=== PATIENT | male | born 1960 | race Caucasian/White ===

== ENCOUNTER → 2017-09-27 09:16 | Outpatient (CLI) | payer MEDICAID, SELFPAY | PROVIDERS: Family Provider Family Medicine; PCP Family Medicine; Visit Provider Family Medicine | DX: R07.89 Other chest pain (principal) | CPT/HCPCS: 93017 ==

== ENCOUNTER → 2018-05-22 10:20 | Outpatient (CLI) | payer MEDICAID, SELFPAY ==
[2018-05-22 12:10] LABS: Basophils # 0.1 K/mm3 (0-0.2); Basophils % 0.7 % (0.1-2.0); Eosinophils # 0.3 K/mm3 (0.0-0.4); Eosinophils % 3.7 % (0.1-12.0); Hematocrit 46.5 % (42.0-52.0); Hemoglobin 15.8 g/dL (14.1-18.0); Lymphocytes # 2.2 K/mm3 (0.7-4.5); Lymphocytes % 29.8 % (10-50); Mean Corpuscular Hemoglobin 29.3 pg (27.0-31.2); Mean Corpuscular Volume 86.2 fl (80-94); Mean Platelet Volume 7.3 fl (7.4-10.4); Monocytes # 0.4 K/mm3 (0.1-1.0); Monocytes % 5.8 % (1.7-9.3); Neutrophils # 4.5 K/mm3 (1.8-7.8); Platelet Count 276 K/mm3 (142-424); Red Cell Distribution Width 13.2 % (11.5-17.5); White Blood Count 7.5 K/mm3 (4.8-10.8)
[2018-05-22 12:55] LABS: Anion Gap 15.1 mEq/L (5-15); Blood Urea Nitrogen 15 mg/dL (7-18); Calcium 9.6 mg/dL (8.5-10.1); Carbon Dioxide 28 mmol/L (21.0-32.0); Chloride 104 mmol/L (98-107); Creatinine,Serum 1.01 mg/dL (0.70-1.30); Estimated Glomerular Filt Rate 76 ml/min (>60); GFR (African American) 92 ML/MIN (>60); Glucose 108 mg/dL (74-106); Potassium 4.1 mmoL/L (3.5-5.1); Sodium 143 mmol/L (136-145)
== END ==
PROVIDERS: Visit Provider Surgery
DX: K46.9 Unspecified abdominal hernia without obstruction or gangrene (principal)
CPT/HCPCS: 36415; 80048; 85025

== ENCOUNTER → 2018-06-19 09:36 | Outpatient (CLI) | payer MEDICAID, SELFPAY ==
[2018-06-19 11:19] LABS: Alanine Aminotransferase 43 U/L (12-78); Albumin Level 4.2 gm/dL (3.4-5.0); Albumin/Globulin Ratio 1.1 (1.1-1.8); Alkaline Phosphatase 81 U/L (46-116); Anion Gap 13.7 mEq/L (5-15); Aspartate Amino Transferase 20 U/L (15-37); Bilirubin,Total 0.8 mg/dL (0.2-1.0); Blood Urea Nitrogen 19 mg/dL (7-18); Calcium 9.5 mg/dL (8.5-10.1); Carbon Dioxide 32 mmol/L (21.0-32.0); Chloride 100 mmol/L (98-107); Chol/HDL Ratio 2.7 (1-3.5); Cholesterol 138 mg/dL (140-200); Creatinine,Serum 1.04 mg/dL (0.70-1.30); Estimated Glomerular Filt Rate 73 ml/min (>60); GFR (African American) 89 ML/MIN (>60); Globulin 3.9 gm/dl (1.3-3.2); Glucose 96 mg/dL (74-106); HDL Cholesterol 52 mg/dL (27-67); LDL Cholesterol 61 mg/dL (0-130); Potassium 3.7 mmoL/L (3.5-5.1); Prostate Specific Ag Screen 2.2 ng/mL (0.0-4.0); Sodium 142 mmol/L (136-145); Total Protein,Serum 8.1 gm/dL (6.4-8.2); Triglycerides 123 mg/dL (30-200); VLDL Cholesterol 25 mg/dL (0-40)
== END ==
PROVIDERS: PCP Family Medicine; Visit Provider Physician Assistant
DX: Z12.5 Encounter for screening for malignant neoplasm of prostate (principal); E78.00 Pure hypercholesterolemia, unspecified; I10 Essential (primary) hypertension
CPT/HCPCS: 36415; 80053; 80061; G0103

== ENCOUNTER → 2018-06-22 11:10 | Outpatient (CLI) | payer MEDICAID, SELFPAY ==
--- NOTE | 2018-06-22 11:16 | XR_ITS ---
XR chest 2V HISTORY: ITS.REASON: BRONCHITIS ORDERING PHYSICIAN: CAREN Bear PATIENT AGE: 58 years COMPARISON: 11/24/2015 FINDINGS: The cardiomediastinal silhouette and pulmonary vascularity are within normal limits. The lungs are clear without infiltrates, suspicious nodules, or pleural effusions. Small opacities are present in the right middle lobe related to a cluster of calcified granulomas unchanged No acute bony abnormalities. IMPRESSION: No change with no acute finding
== END ==
PROVIDERS: PCP Physician Assistant; Visit Provider Physician Assistant
DX: J40 Bronchitis, not specified as acute or chronic (principal)
CPT/HCPCS: 71046

== ENCOUNTER → 2019-01-26 10:52 | Outpatient (CLI) | payer MEDICAID, SELFPAY ==
--- NOTE | 2019-01-26 10:55 | CA_ITS ---
APPROVED REPORT Left Lower Extremity Venous Study for SVT/DVT. Finishing Frame Runner: CT Indications Lower Extremity Pain: Left Varicose Veins Vein Imaging CFV (L): compressive, spontaneous, phasic, augmentation SFJ (L): compressive, spontaneous, phasic, augmentation FEM (L): compressive, spontaneous, phasic, augmentation POP (L): compressive, spontaneous, phasic, augmentation DFV (L): compressive, spontaneous, phasic, augmentation PTV (L): compressive, spontaneous, phasic, augmentation GSV (L): Partially Compressible SSV (L): compressive, spontaneous, phasic, augmentation Peroneals (L):compressive, spontaneous, phasic, augmentation GAS (L): compressive, spontaneous, phasic, augmentation Findings Superficial thrombophlebitis is visualized in the GSV_vein of the LEFT_lower extremity . SVT in left GSV. Dr Brumfield notified at 1145 01/26/19. Conclusion Superficial thrombophlebitis is visualized in the GSV_vein of the LEFT_lower extremity . Electronically signed by : Maciel Garza MD 01/26/2019 14:30:33
== END ==
PROVIDERS: PCP Physician Assistant; Visit Provider Physician Assistant
DX: I80.9 Phlebitis and thrombophlebitis of unspecified site (principal); M79.605 Pain in left leg
CPT/HCPCS: 93971

== ENCOUNTER → 2019-10-22 09:13 | Outpatient (CLI) | payer OTHER, SELFPAY ==
--- NOTE | 2019-10-22 09:16 | CA_ITS ---
APPROVED REPORT Bilateral Lower Extremity Venous Study for DVT. Area Director Of Home Health Sales: SAMIR Indications FOLLOW UP SVT GSV 01/18 Vein Imaging CFV (L): compressive, spontaneous, phasic, augmentation SFJ (L): compressive, spontaneous, phasic, augmentation FEM (L): compressive, spontaneous, phasic, augmentation POP (L): compressive, spontaneous, phasic, augmentation DFV (L): compressive, spontaneous, phasic, augmentation PTV (L): Compressible GSV (L): Compressible Peroneals (L):Compressible GAS (L): Compressible Findings No evidence of DVT or superficial thrombophlebitis in the veins scanned of the left lower extremity. Conclusion No evidence of DVT or superficial thrombophlebitis in the veins scanned of the left lower extremity. Electronically signed by : Jaiden Erazo, 10/25/2019 09:20:11
== END ==
PROVIDERS: PCP Family Medicine; Visit Provider Physician Assistant
DX: I82.812 Embolism and thrombosis of superficial veins of left lower extremity (principal)
CPT/HCPCS: 93971

== ENCOUNTER → 2019-10-31 12:28 | Outpatient (CLI) | payer OTHER, SELFPAY ==
--- NOTE | 2019-10-31 12:38 | XR_ITS ---
PROCEDURE: XR HAND RT MIN 3V CLINICAL INDICATION: right hand pain/ ganglion cyst COMPARISON: [facility] HAND-RT 3 VIEWS from 03/18/2017 FINDINGS: No fracture or dislocation. No lytic or blastic change. There is normal mineralization. The joint spaces are well-preserved. No significant degenerative/arthritic changes. No erosive changes evident. Other findings:None. IMPRESSION: No acute findings. Dictated by: Maciel Garza MD 10/31/2019 13:29 Electronically signed by Maciel Garza MD in [place] 10/31/2019 13:29
== END ==
PROVIDERS: PCP Family Medicine; Visit Provider Orthopaedic Surgery
DX: M79.641 Pain in right hand (principal)
CPT/HCPCS: 73130

== ENCOUNTER → 2020-12-30 12:35 | Outpatient (CLI) | payer OTHER, SELFPAY ==
[2020-12-30 13:04] LABS: Basophils # 0.1 K/mm3 (0-0.2); Basophils % 1.3 % (0.1-2.0); Eosinophils % 0.1 % (0.1-12.0); Hematocrit 41.3 % (42.0-52.0); Hemoglobin 14.4 g/dL (14.1-18.0); Lymphocytes # 1.4 K/mm3 (0.7-4.5); Lymphocytes % 20.9 % (10-50); Mean Corpuscular HGB Conc 34.9 g/dL (31.8-35.4); Mean Corpuscular Hemoglobin 29.9 pg (27.0-31.2); Mean Corpuscular Volume 85.9 fl (80-94); Mean Platelet Volume 8.8 fl (7.4-10.4); Monocytes # 0.4 K/mm3 (0.1-1.0); Monocytes % 5.2 % (1.7-9.3); Neutrophils % 72.4 % (37.0-80.0); Platelet Count 156 K/mm3 (142-424); Red Blood Count 4.81 M/mm3 (4.60-6.20); Red Cell Distribution Width 13.8 % (11.5-17.5); White Blood Count 6.9 K/mm3 (4.8-10.8)
== END ==
PROVIDERS: PCP Family Medicine; Visit Provider Family Medicine
DX: Z20.822 Contact with and (suspected) exposure to COVID-19 (principal); U07.1 COVID-19
CPT/HCPCS: 36415; 85025; U0003

== ENCOUNTER 2021-01-02 20:52 | Emergency (ER) | payer OTHER, SELFPAY ==
[2021-01-02 21:06] VITALS: BP 119/78; PULSE 83; RESP 18; TEMP 38.6; O2SAT 94; BMI 33.2
--- NOTE | 2021-01-02 21:21 | CT_ITS ---
PROCEDURE INFORMATION: Exam: CT Abdomen And Pelvis With Contrast Exam date and time: 01/02/2021 9:21 PM Age: 60 years old Clinical indication: Abdominal pain; Generalized; Prior surgery; Surgery date: 6+ months; Patient HX: Rlq abd pain, covid positive; Additional info: Rlq pain TECHNIQUE: Imaging protocol: Computed tomography of the abdomen and pelvis with contrast. Radiation optimization: All CT scans at this facility use at least one of these dose optimization techniques: automated exposure control; mA and/or kV adjustment per patient size (includes targeted exams where dose is matched to clinical indication); or iterative reconstruction. Contrast material: ISOVUE; Contrast volume: 70 ml; Contrast route: IV; COMPARISON: [facility]AJW/ORT MRI-LOW EXT ANY JOINT W/O-RT 11/07/2015 7:56 AM FINDINGS: Liver: There is diffuse hypoattenuation of the liver compatible with mild hepatic steatosis. Gallbladder and bile ducts: Normal. No calcified stones. No ductal dilation. Pancreas: Normal. No ductal dilation. Spleen: Normal. No splenomegaly. Adrenal glands: Normal. No mass. Kidneys and ureters: Bosniak 1 cyst measuring 5.1 cm with internal density of 2 Hounsfield units. No follow-up recommended. Stomach and bowel: Unremarkable. No obstruction. No mucosal thickening. Appendix: No evidence of appendicitis. Intraperitoneal space: Unremarkable. No free air. No significant fluid collection. Vasculature: Unremarkable. No abdominal aortic aneurysm. Lymph nodes: Unremarkable. No enlarged lymph nodes. Urinary bladder: Unremarkable as visualized. Reproductive: Moderate enlargement of the prostate indenting the posterior wall of the bladder. Bones/joints: Mild loss of intervertebral disc space with degenerative changes at L5-S1, and lower thoracic spine. Soft tissues: Normal. Other findings: Patchy subpleural predominant ground-glass opacities are concerning for atypical infection, possibly mild changes of influenza like illness. IMPRESSION: Patchy subpleural predominant ground-glass opacities are concerning for atypical infection, possibly mild changes of influenza like illness. No CT findings explain patient's symptoms.
[2021-01-02 22:16] LABS: Basophils % 0.4 % (0.1-2.0); Eosinophils % 0.1 % (0.1-12.0); Hematocrit 41.5 % (42.0-52.0); Hemoglobin 14.5 g/dL (14.1-18.0); Lymphocytes # 1.4 K/mm3 (0.7-4.5); Lymphocytes % 15.5 % (10-50); Mean Corpuscular HGB Conc 34.9 g/dL (31.8-35.4); Mean Corpuscular Hemoglobin 30.2 pg (27.0-31.2); Mean Corpuscular Volume 86.6 fl (80-94); Mean Platelet Volume 10.2 fl (7.4-10.4); Monocytes # 0.4 K/mm3 (0.1-1.0); Monocytes % 4.6 % (1.7-9.3); Neutrophils # 7.1 K/mm3 (1.8-7.8); Neutrophils % 79.4 % (37.0-80.0); Platelet Count 154 K/mm3 (142-424); Red Cell Distribution Width 13.8 % (11.5-17.5); White Blood Count 8.9 K/mm3 (4.8-10.8)
[2021-01-02 22:22] LABS: Alanine Aminotransferase 73 U/L (12-78); Albumin Level 3.7 g/dl (3.5-5.0); Albumin/Globulin Ratio 1.2 (1.1-1.8); Alkaline Phosphatase 42 U/L (38-126); Amylase 86 U/L (30-110); Anion Gap 12.3 mEq/L (5-15); Aspartate Amino Transferase 157 U/L (17-59); Bilirubin,Total 1.2 mg/dl (0.2-1.3); Blood Urea Nitrogen 25 mg/dl (9-20); Calcium 8.4 mg/dl (8.4-10.2); Carbon Dioxide 28 mmol/L (22.0-30.0); Chloride 99 mmol/L (98-107); Creatinine Clearance Estimated 94 mL/min (50-200); Estimated Glomerular Filt Rate 62 ml/min (>60); GFR (African American) 75 ML/MIN (>60); Globulin 3.2 g/dL (1.3-3.2); Glucose 142 mg/dl (74-100); Lipase 398 U/L (23-300); Potassium 4.3 mmoL/L (3.5-5.1); Sodium 135 mmol/L (136-145); Total Protein,Serum 6.9 g/dl (6.3-8.2)
[2021-01-02 22:27] LABS: C-Reactive Protein 18.8 mg/L (0-4)
[2021-01-02 22:40] LABS: Erythrocyte Sedimentation Rate 13 mm/hr (0-20)
[2021-01-02 22:41] LABS: Procalcitonin 0.092 ng/mL (0.0-2.0)
--- NOTE | 2021-01-02 23:38 | HMH.EDNVD ---
ED Disposition Clinical Impression: COVID-19 Disposition: Home, Self-Care Condition on Discharge: Good Instructions: DI for COVID-19 (Suspected or Confirmed ) Additional Instructions: fluids and advil/tyenol and see pcp for follow up Referrals: Radha Gastelum MD [Primary Care Provider] - - Critical Care Critical Care Time: No Attestation: On 01/02/21, the high probability of a clinically significant, sudden or life threatening deterioration of the following system(s) required my full and direct attention, intervention and personal management. The time I documented below is in addition to time spent performing reported procedures but includes the following listed in this critical care notation. Medical Decision Making - Medical Records Medical records reviewed: Yes: I reviewed the patient's medical records. - Fred Inquiry Pt receiving controlled substance: No Vital Signs: 01/02/21 21:06 Temperature 101.4 F H Temperature Source Oral Pulse Rate [Right] 83 Respiratory Rate 18 Blood Pressure [Right Arm] 119/78 Blood Pressure Mean [Right Arm] 91 Blood Pressure Source [Right Arm] Automatic Cuff Blood Pressure Position [Right Arm] Sitting 02 Sat by Pulse Oximetry 94 L Oxygen Delivery Method Room Air - Lab Data Lab results reviewed: Yes: I reviewed the patient's lab results. Lab Results 01/02/21 21:45: WBC 8.9, RBC 4.80, Hgb 14.5, Hct 41.5 L, MCV 86.6, MCH 30.2, MCHC 34.9, RDW 13.8, Plt Count 154, MPV 10.2, Neut % (Auto) 79.4, Lymph % (Auto) 15.5, [place] % (Auto) 4.6, Eos % (Auto) 0.1, Baso % (Auto) 0.4, Neut # (Auto) 7.1, Lymph # (Auto) 1.4, [place] # (Auto) 0.4, Eos # (Auto) 0.0, Baso # (Auto) 0.0, ESR 13 01/02/21 21:45: Sodium 135 L, Potassium 4.3, Chloride 99, Carbon Dioxide 28, Anion Gap 12.3, BUN 25 H, Creatinine 1.20, Estimated Creat Clear 94, Estimated GFR 62, Est GFR ( Amer) 75, Glucose 142 H, Calcium 8.4, Total Bilirubin 1.2, AST 157 H, ALT 73, Alkaline Phosphatase 42, C-Reactive Protein 18.8 H, Total Protein 6.9, Albumin 3.7, Globulin 3.2, Albumin/Globulin Ratio 1.2, Amylase 86, Lipase 398 H, Procalcitonin 0.092 01/02/21 23:35: Urine Color Yellow, Urine Appearance Clear, Urine pH 6.0, Ur Specific [place] <= 1.005, Urine Protein Trace, Urine Glucose (UA) Negative, Urine Ketones Negative, Urine Blood 1+, Urine Nitrate Negative, Urine Bilirubin Negative, Urine Urobilinogen 1.0, Ur Leukocyte Esterase Negative, Urine RBC 3-5, Urine WBC 3-5, Ur Squamous Epith Cells Occasional, Urine Bacteria None Result diagrams: 01/02/21 21:45 01/02/21 21:45 Orders (Tests/Meds): ED MEDICATIONS Generic Name Dose Route Start Last Admin Trade Name Kaylan PRN Reason Stop Dose Admin Sodium Chloride 8 ml 01/02/21 21:21 Sodium Chloride 0.9% 10ml Vial IV 02/01/21 21:20 NEEDED PRN dilute pepcid Discontinued Medications Generic Name Dose Route Start Last Admin Trade Name Freq PRN Reason Stop Dose Admin Dexamethasone Sodium Phosphate 10 mg 01/02/21 21:21 01/02/21 21:55 Dexamethasone 4mg/Ml 1ml Vial IV 01/02/21 21:22 10 mg ONCE ONE Administration Famotidine 20 mg 01/02/21 21:21 01/02/21 21:54 Famotidine 20mg/2ml Vial IV 01/02/21 21:22 20 mg ONCE ONE Administration Sodium Chloride 1,000 mls @ 999 mls/hr 01/02/21 21:30 01/02/21 21:55 Sod Chlor 0.9% 1000ml Bag IV 01/02/21 22:30 999 mls/hr .Q1H1M ANA LAURA Administration Iopamidol 70 ml 01/02/21 23:32 01/02/21 23:33 Iopamidol-370 (76%);100ml Bottle IV 01/02/21 23:33 70 ml ONCE ONE Administration Ketorolac Tromethamine 30 mg 01/02/21 21:21 01/02/21 21:54 Ketorolac 30mg/Ml Vial IV 01/02/21 21:22 30 mg ONCE ONE Administration Metoclopramide HCl 10 mg 01/02/21 21:21 01/02/21 21:54 Metoclopramide Hcl 10mg/2ml Vial IVP 01/02/21 21:22 10 mg ONCE ONE Administration Sodium Chloride 10 ml 01/02/21 23:32 01/02/21 23:33 Sodium Chloride 0.9% 10ml Syr (Rad Only) IV 01/02/21 23:33 10 ml
[2021-01-02 23:39] LABS: Microscopic, Urine URINE MICROSCOPIC (MICROSCOPIC)
[2021-01-02 23:42] LABS: Appearance,Urine CLEAR (Clear); Bilirubin,Urine Negative (Negative); Blood, Urine 1+ (Negative); Color,Urine YELLOW (Yellow); Glucose,Urine (UA) Negative (Negative); Ketones,Urine Negative (Negative); Leukocyte Esterase,Urine Negative (Negative); Nitrate,Urine Negative (Negative); Protein,Urine TRACE (Negative); Specific Gravity, Urine <= 1.005 (1.005-1.030)
--- NOTE | 2021-01-02 23:44 | XR_ITS ---
PROCEDURE INFORMATION: Exam: XR Chest Exam date and time: 01/02/2021 11:44 PM Age: 60 years old Clinical indication: Cough and dyspnea and fever; Additional info: Covid 19 TECHNIQUE: Imaging protocol: XR of the chest. Views: 2 views. COMPARISON: DX CXR2V XR chest 2V 06/22/2018 11:19 AM FINDINGS: Lungs: Multifocal peripheral parenchymal opacities without large consolidation or pleural effusion. Pleural spaces: See Lungs finding. Heart/Mediastinum: Unremarkable. No cardiomegaly. Bones/joints: Unremarkable. IMPRESSION: Multifocal peripheral parenchymal opacities without large consolidation or pleural effusion.
[2021-01-02 23:52] LABS: Squamous Epithelial Cell,Urine Occasional #/hpf (0-5)
--- NOTE | 2021-01-03 00:05 | PC.NURSE ---
updated daughter on pt's condition. OK'ed per pt.
[2021-01-03 00:43] VITALS: BP 140/87; PULSE 81; RESP 18; TEMP 37.2; O2SAT 94
== END 2021-01-03 00:45 | disposition home or self-care (01) ==
PROVIDERS: Emergency Provider Emergency Medicine; PCP Family Medicine
DX: U07.1 COVID-19 (principal); I10 Essential (primary) hypertension; E78.5 Hyperlipidemia, unspecified
CPT/HCPCS: 71046; 74177; 80053; 81001; 82150; 83690; 84145; 85025; 85651; 86140; 96365; 96375; 99283; Q9967

== ENCOUNTER 2021-01-06 11:41 | Emergency (ER) | payer OTHER, SELFPAY ==
[2021-01-06 11:42] VITALS: BP 143/90; PULSE 96; RESP 21; TEMP 37.1; O2SAT 93; BMI 33.0
--- NOTE | 2021-01-06 11:54 | HMH.EDSOB ---
ED Disposition Clinical Impression: COVID-19 Community acquired pneumonia Qualifiers: Laterality: unspecified laterality Qualified Code(s): J18.9 - Pneumonia, unspecified organism Disposition: Home, Self-Care Condition on Discharge: Fair Instructions: Pneumonia-Adult Additional Instructions: Please return to the emergency department if you feel worse in any way. All medications as prescribed. Follow-up with your primary care physician in about 3 to 4 days if you do not feel better. Prescriptions: levoFLOXacin [Levaquin 500mg tab] 500 mg PO DAILY #7 tab Transmission Status: Received by [id number] Referrals: Radha Gastelum MD [Primary Care Provider] - 3 days - Critical Care Critical Care Time: No Attestation: On 01/06/21, the high probability of a clinically significant, sudden or life threatening deterioration of the following system(s) required my full and direct attention, intervention and personal management. The time I documented below is in addition to time spent performing reported procedures but includes the following listed in this critical care notation. Medical Decision Making - Medical Records Medical records reviewed: Yes: I reviewed the patient's medical records. - Fred Inquiry Pt receiving controlled substance: No Vital Signs: 01/06/21 11:42 01/06/21 15:19 Temperature 98.7 F 98.2 F Temperature Source Oral Pulse Rate 99 H Pulse Rate [Right Radial] 96 H Respiratory Rate 21 21 Blood Pressure 135/92 H Blood Pressure [Right Arm] 143/90 H Blood Pressure Mean [Right Arm] 107 Blood Pressure Source [Right Arm] Automatic Cuff Blood Pressure Position [Right Arm] Sitting 02 Sat by Pulse Oximetry 93 L Oxygen Delivery Method Room Air Room Air - Lab Data Lab results reviewed: Yes: I reviewed the patient's lab results. Lab Results 01/06/21 13:30: WBC 11.5 H, RBC 4.98, Hgb 14.7, Hct 43.2, MCV 86.8, MCH 29.6, MCHC 34.1, RDW 13.7, Plt Count 209 D, MPV 10.6 H, Neut % (Auto) 87.4 H, Lymph % (Auto) 5.8 L, [place] % (Auto) 5.3, Eos % (Auto) 0.9, Baso % (Auto) 0.5, Neut # (Auto) 10.1 H, Lymph # (Auto) 0.7, [place] # (Auto) 0.6, Eos # (Auto) 0.1, Baso # (Auto) 0.1, Total Counted 100, Neutrophils % (Manual) 86 H, Lymphocytes % (Manual) 4 L, Monocytes % (Manual) 10 H, Platelet Estimate Normal, Hypochromasia 2+, Anisocytosis 1+, Macrocytosis 2+ 01/06/21 13:30: Sodium 141, Potassium 3.1 L, Chloride 106, Carbon Dioxide 25, Anion Gap 13.1, BUN 24 H, Creatinine 0.80, Estimated Creat Clear 141, Estimated GFR 99, Est GFR ( Amer) 119, Glucose 173 H, Calcium 9.5, Total Bilirubin 1.5 H, AST 102 H, ALT 103 H, Alkaline Phosphatase 82, Troponin I 0.02, NT-Pro-B Natriuret Pep 347 H, Total Protein 7.8, Albumin 4.1, Globulin 3.7 H, Albumin/Globulin Ratio 1.1 01/06/21 13:30: Lactate 1.3 Result diagrams: 01/06/21 13:30 01/06/21 13:30 Orders (Tests/Meds): ED MEDICATIONS Discontinued Medications Generic Name Dose Route Start Last Admin Trade Name Freq PRN Reason Stop Dose Admin Levofloxacin 500 mg 01/06/21 14:52 01/06/21 15:16 Levofloxacin 500mg Tab PO 01/06/21 14:53 500 mg ONCE ONE Administration - Radiology Data #1 Image(s): Chest Image Reviewed: Yes I have reviewed radiologist's interpretation Preliminary Findings: Abnormal (Worsening infiltrates consistent with pneumonia.) Medical Decision Narrative: The patient has a known diagnosis COVID-19. He presents to the emergency department for worsening symptoms. His oxygen saturations on room air are still in the low to mid 90s. The patient has a mildly elevated white blood cell count. He is not tachycardic. His chest x-ray shows worsening pneumonia. I feel that the patient can be discharged in fair condition with a prescription for antibiotics to cover for possible superimposed bacterial pneumonia. Resp/SOB HPI - General Chief Complaint: Shortness of Breath/Dyspnea Stated Complaint: covid positive, worse
--- NOTE | 2021-01-06 12:11 | XR_ITS ---
PROCEDURE: XR CHEST PORTABLE CLINICAL HISTORY: Dyspnea, COVID+ COMPARISON: CR CXR CHEST(2 VIEWS-NOT PORTABLE) from 11/24/2015 DX CXR2V XR chest 2V from 06/22/2018 CR XR CHEST 2V from 01/03/2021 FINDINGS: The cardiomediastinal silhouette and pulmonary vascularity are within normal limits. Peripheral consolidation involves both upper and lower lobes on both sides consistent with worsening pneumonia. No effusions. No evidence of pneumothorax. The consolidation is slightly worse on the left compared to the right. No acute bony abnormalities. IMPRESSION: Slight worsening bilateral pneumonia Dictated by: Maciel Garza MD 01/06/2021 12:52 Maciel Garza MD in [place] 01/06/2021 12:52
[2021-01-06 13:42] LABS: Basophils # 0.1 K/mm3 (0-0.2); Basophils % 0.5 % (0.1-2.0); Eosinophils # 0.1 K/mm3 (0.0-0.4); Eosinophils % 0.9 % (0.1-12.0); Hematocrit 43.2 % (42.0-52.0); Hemoglobin 14.7 g/dL (14.1-18.0); Lymphocytes # 0.7 K/mm3 (0.7-4.5); Lymphocytes % 5.8 % (10-50); Mean Corpuscular HGB Conc 34.1 g/dL (31.8-35.4); Mean Corpuscular Hemoglobin 29.6 pg (27.0-31.2); Mean Corpuscular Volume 86.8 fl (80-94); Mean Platelet Volume 10.6 fl (7.4-10.4); Monocytes # 0.6 K/mm3 (0.1-1.0); Monocytes % 5.3 % (1.7-9.3); Neutrophils # 10.1 K/mm3 (1.8-7.8); Neutrophils % 87.4 % (37.0-80.0); Platelet Count 209 K/mm3 (142-424); Red Blood Count 4.98 M/mm3 (4.60-6.20); Red Cell Distribution Width 13.7 % (11.5-17.5); White Blood Count 11.5 K/mm3 (4.8-10.8)
[2021-01-06 13:45] LABS: MANUAL DIFFERENTIAL MANUAL DIFFERENTIAL (MANUAL DIFF)
[2021-01-06 13:52] LABS: Chloride 106 mmol/L (98-107); Potassium 3.1 mmoL/L (3.5-5.1); Sodium 141 mmol/L (136-145)
[2021-01-06 13:54] LABS: Alanine Aminotransferase 103 U/L (12-78); Aspartate Amino Transferase 102 U/L (17-59); Blood Urea Nitrogen 24 mg/dl (9-20); Creatinine Clearance Estimated 141 mL/min (50-200); Estimated Glomerular Filt Rate 99 ml/min (>60); GFR (African American) 119 ML/MIN (>60); Lactic Acid 1.3 mmol/L (0.7-2.1)
[2021-01-06 13:55] LABS: Albumin Level 4.1 g/dl (3.5-5.0); Albumin/Globulin Ratio 1.1 (1.1-1.8); Alkaline Phosphatase 82 U/L (38-126); Anion Gap 13.1 mEq/L (5-15); Bilirubin,Total 1.5 mg/dl (0.2-1.3); Calcium 9.5 mg/dl (8.4-10.2); Carbon Dioxide 25 mmol/L (22.0-30.0); Globulin 3.7 g/dL (1.3-3.2); Glucose 173 mg/dl (74-100); Total Protein,Serum 7.8 g/dl (6.3-8.2)
[2021-01-06 14:04] LABS: Lymphocytes % 4 % (10-50); Monocytes % 10 % (2-9); NT Pro Brain Natriuretic Pep. 347 pg/mL (0-125); Neutrophils % 86 % (42-76); Total Cells Counted 100
[2021-01-06 14:05] LABS: Hypochromasia 2+; Macrocytosis 2+; Platelet Estimate Normal
[2021-01-06 14:06] LABS: Anisocytosis 1+
[2021-01-06 14:08] LABS: Troponin I 0.02 ng/ml (0.00-0.034)
[2021-01-06 15:19] VITALS: BP 135/92; PULSE 99; RESP 21; TEMP 36.8; O2SAT 97
== END 2021-01-06 15:24 | disposition home or self-care (01) ==
PROVIDERS: Emergency Provider Emergency Medicine; PCP Family Medicine
DX: J18.9 Pneumonia, unspecified organism (principal); U07.1 COVID-19; E78.5 Hyperlipidemia, unspecified; I10 Essential (primary) hypertension; Z87.891 Personal history of nicotine dependence; Z79.899 Other long term (current) drug therapy
CPT/HCPCS: 71045; 80053; 83605; 83880; 84484; 85007; 85025; 99283

== ENCOUNTER → 2021-02-05 16:19 | Outpatient (CLI) | payer OTHER, SELFPAY ==
--- NOTE | 2021-02-05 16:43 | XR_ITS ---
PROCEDURE INFORMATION: Exam: XR Abdomen Exam date and time: 02/05/2021 4:43 PM Age: 60 years old Clinical indication: Patient HX: Generalized abdominal pain, constipation for 4 days, otc meds for constipation not helping. ; Additional info: Generalized abd pain TECHNIQUE: Imaging protocol: XR of the abdomen. Views: 2 Views. Upright and supine views. COMPARISON: CT ABDOMEN PELVIS W CON 01/02/2021 10:47 PM FINDINGS: Gastrointestinal tract: Non-obstructive bowel gas pattern. Intraperitoneal space: No pneumoperitoneum. Bones/joints: No acute osseous abnormality. IMPRESSION: No acute findings.
[2021-02-05 17:12] LABS: Basophils # 0.1 K/mm3 (0-0.2); Basophils % 0.7 % (0.1-2.0); Eosinophils # 0.1 K/mm3 (0.0-0.4); Eosinophils % 1.3 % (0.1-12.0); Hematocrit 43.7 % (42.0-52.0); Hemoglobin 14.8 g/dL (14.1-18.0); Lymphocytes # 2.6 K/mm3 (0.7-4.5); Lymphocytes % 23.5 % (10-50); Mean Corpuscular HGB Conc 33.9 g/dL (31.8-35.4); Mean Corpuscular Hemoglobin 30.6 pg (27.0-31.2); Mean Corpuscular Volume 90.4 fl (80-94); Mean Platelet Volume 8.6 fl (7.4-10.4); Monocytes # 0.7 K/mm3 (0.1-1.0); Monocytes % 5.9 % (1.7-9.3); Neutrophils # 7.6 K/mm3 (1.8-7.8); Neutrophils % 68.6 % (37.0-80.0); Platelet Count 352 K/mm3 (142-424); Red Blood Count 4.83 M/mm3 (4.60-6.20); Red Cell Distribution Width 14.5 % (11.5-17.5); White Blood Count 11.1 K/mm3 (4.8-10.8)
[2021-02-05 18:04] LABS: Chloride 101 mmol/L (98-107); Sodium 140 mmol/L (136-145)
[2021-02-05 18:05] LABS: Potassium 3.8 mmoL/L (3.5-5.1)
[2021-02-05 18:07] LABS: Alanine Aminotransferase 31 U/L (12-78); Albumin Level 4.5 g/dl (3.5-5.0); Albumin/Globulin Ratio 1.4 (1.1-1.8); Alkaline Phosphatase 77 U/L (38-126); Amylase 56 U/L (30-110); Anion Gap 16.8 mEq/L (5-15); Aspartate Amino Transferase 36 U/L (17-59); Bilirubin,Total 1.2 mg/dl (0.2-1.3); Blood Urea Nitrogen 12 mg/dl (9-20); Carbon Dioxide 26 mmol/L (22.0-30.0); Estimated Glomerular Filt Rate 76 ml/min (>60); GFR (African American) 92 ML/MIN (>60); Globulin 3.2 g/dL (1.3-3.2); Glucose 108 mg/dl (74-100); Lipase 212 U/L (23-300); Total Protein,Serum 7.7 g/dl (6.3-8.2)
== END ==
PROVIDERS: Visit Provider Physician Assistant
DX: R10.84 Generalized abdominal pain (principal)
CPT/HCPCS: 36415; 74019; 80053; 82150; 83690; 85025

== ENCOUNTER → 2022-02-26 13:30 | Outpatient (CLI) | payer OTHER, SELFPAY ==
--- NOTE | 2022-02-26 13:40 | XR_ITS ---
FINAL REPORT CLINICAL HISTORY: HX BACK SURGERY..back pain FINDINGS: LUMBAR SPINE 5 views of the lumbar spine were obtained. There is no evidence of fracture or dislocation. The vertebral alignment is normal. There are mild degenerative changes with osteophytes. There is facet arthropathy in the lower lumbar spine. No paraspinous soft tissue abnormalities identified. IMPRESSION: Mild degenerative change with no acute bony abnormality. Reviewed, Interpreted and Dictated by Zaki Corrales III, MD Transcribed by Barbi Musa Authenticated and [facility]
== END ==
PROVIDERS: PCP Family Medicine; Visit Provider Physician Assistant
DX: M54.50 Low back pain, unspecified (principal); M54.18 Radiculopathy, sacral and sacrococcygeal region
CPT/HCPCS: 72110

== ENCOUNTER → 2022-05-14 13:59 | Outpatient (CLI) | payer OTHER, SELFPAY ==
--- NOTE | 2022-05-14 | CA_ITS ---
FINAL REPORT TECHNIQUE: Ultrasound images of the deep venous system were obtained from the left groin to the calf veins. CLINICAL HISTORY: Patient states he's had a knot on his left medial mid calf for 3-4 months. It has gotten larger in the last 3 weeks. Denies trauma. History of SVT LLE 2019. HTN, HLD. 81 mg ASA daily FINDINGS: The deep venous system is normally compressible. Normal flow is identified. There is a nonvascular, cystic mass in the medial left calf measuring 3.7 x 1.0 cm which could represent hematoma or other fluid collection. IMPRESSION: No evidence of left lower extremity DVT. Cystic mass in the medial left calf which could represent hematoma or other fluid collection. If indicated, this could be further evaluated with MRI. Reviewed, Interpreted and Dictated by Zaki Corrales III, MD Transcribed by Mary Gao Authenticated and [facility]
== END ==
PROVIDERS: PCP Family Medicine; Visit Provider Physician Assistant
DX: R60.0 Localized edema (principal); M79.605 Pain in left leg
CPT/HCPCS: 93971

== ENCOUNTER → 2022-05-17 12:19 | Outpatient (CLI) | payer OTHER, SELFPAY ==
--- NOTE | 2022-05-17 12:26 | XR_ITS ---
FINAL REPORT CLINICAL HISTORY: MASS OF L LOWER LEG FINDINGS: AP and lateral views of the left tibia and fibula were obtained. There is no prior exam for comparison. There is no acute fracture of the left tibia or fibula. The knee and ankle appear intact. There is soft tissue edema of the distal leg, worse medially. No discrete mass is visualized. IMPRESSION: 1. No acute osseous abnormality of the left tibia or fibula. 2. Soft tissue edema of the distal leg, worse medially. Consider MRI of area of interest is further workup of mass is needed. Reviewed, Interpreted and Dictated by Юлия Peters MD Transcribed by Barbi Musa Authenticated and . [facility]
== END ==
PROVIDERS: PCP Family Medicine; Visit Provider Physician Assistant
DX: R22.42 Localized swelling, mass and lump, left lower limb (principal)
CPT/HCPCS: 73590

== ENCOUNTER → 2022-05-25 07:41 | Outpatient (CLI) | payer OTHER, SELFPAY ==
--- NOTE | 2022-05-25 07:44 | MR_ITS ---
FINAL REPORT TECHNIQUE: Multiplanar MR of the left lower leg without gadolinium enhancement. CLINICAL HISTORY: MASS OF LEFT LOWER LEG. spot on medial aspect of leg [id number]. states mass has gotten bigger. put marker on mass. FINDINGS: Marrow signal: Unremarkable Joints: Unremarkable Soft tissues: Unremarkable. Fluid collection within the subcutaneous fatty tissues of the medial calf is nonspecific. Collection measures 3.7 x 2.7 x 0.9 cm and may represent hematoma or less likely seroma. Abscess cannot be excluded. IMPRESSION: Palpable abnormality in the medial right mid calf likely complex fluid collection with surrounding edema could represent hematoma or less likely seroma. Abscess cannot be excluded. This would be amenable to aspiration if desired. Reviewed, Interpreted and Dictated by Radha Edward MD Transcribed by Stewart Dial Authenticated and [facility]
== END ==
PROVIDERS: PCP Physician Assistant; Visit Provider Physician Assistant
DX: R22.42 Localized swelling, mass and lump, left lower limb (principal)
CPT/HCPCS: 73718

== ENCOUNTER 2023-11-07 15:14 | Outpatient (CLI) | payer OTHER, SELFPAY ==
[2023-11-07 16:16] LABS: Alanine Aminotransferase 26 U/L (12-78); Albumin Level 4.8 g/dl (3.5-5.0); Albumin/Globulin Ratio 1.6 (1.1-1.8); Alkaline Phosphatase 65 U/L (38-126); Anion Gap 9.5 mEq/L (5-15); Aspartate Amino Transferase 32 U/L (17-59); Bilirubin,Total 2.1 mg/dl (0.2-1.3); Blood Urea Nitrogen 19 mg/dl (9-20); Calcium 10.4 mg/dl (8.4-10.2); Carbon Dioxide 29 mmol/L (22.0-30.0); Chloride 104 mmol/L (98-107); Chol/HDL Ratio 3.5 (1-3.5); Cholesterol 153 mg/dl (140-200); Estimated Glomerular Filt Rate 56 ml/min (>60); GFR (African American) 67 ML/MIN (>60); Glucose 111 mg/dl (74-100); HDL Cholesterol 44 mg/dl (40-60); Potassium 3.5 mmoL/L (3.5-5.1); Sodium 139 mmol/L (136-145); Total Protein,Serum 7.8 g/dl (6.3-8.2); Triglycerides 194 mg/dl (30-150); VLDL Cholesterol 39 mg/dL (0-40)
[2023-11-07 16:27] LABS: Direct LDL Cholesterol 70.72 mg/dL (100-129)
[2023-11-07 16:47] LABS: Prostate Specific Ag Screen 2.7 ng/ml (0.0-4.0)
== END 2023-11-07 23:59 | disposition home or self-care (01) ==
LOC: LAB 15:15
PROVIDERS: PCP Family Medicine; Visit Provider Family Medicine
DX: N40.0 Benign prostatic hyperplasia without lower urinary tract symptoms (principal); E78.2 Mixed hyperlipidemia; I10 Essential (primary) hypertension
CPT/HCPCS: 36415; 80053; 80061; G0103

== ENCOUNTER 2024-08-30 11:20 | Outpatient (CLI) | payer OTHER, SELFPAY | END 2024-08-30 23:59 | disposition home or self-care (01) | LOC: RAD 11:21 | PROVIDERS: PCP Family Medicine; Visit Provider Family Medicine | DX: F40.240 Claustrophobia (principal); R25.1 Tremor, unspecified ==